=== PATIENT | female | born 1990 | race Caucasian/White ===

== ENCOUNTER 2017-02-04 16:17 | Emergency (ER) | payer OTHER | END 2017-02-04 17:49 | disposition home or self-care (01) | LOC: FER 16:17 | DX: J02.0 Streptococcal pharyngitis (principal); J32.9 Chronic sinusitis, unspecified; F17.210 Nicotine dependence, cigarettes, uncomplicated; Z88.0 Allergy status to penicillin | CPT/HCPCS: 87450; 87804; 87899; 99283 ==